=== PATIENT | female | born 1995 | race Caucasian/White ===

== ENCOUNTER 2018-07-01 19:36 | Emergency (ER) | payer MEDICAID, OTHER ==
[~2018-07-01] VITALS: Ht 162.6 cm; Wt 54.2 kg
[2018-07-01 21:17] LABS: CLARITY URINE CLEAR (CLEAR); COLOR URINE YELLOW (YELLOW); KETONES URINE TRACE (NEGATIVE); LEUKOCYTE ESTERASE URINE 3+ (NEGATIVE); NITRITE URINE NEGATIVE (NEGATIVE); OCCULT BLOOD URINE NEGATIVE (NEGATIVE); PH URINE 6.5 (4.5-8.0); PROTEIN URINE NEGATIVE (NEGATIVE); SPECIFIC GRAVITY URINE 1.018 (1.005-1.030); UROBILINOGEN URINE 0.2 E.U./dL (0.2-1.0)
[2018-07-02] MEDS ORDERED: NITROFURANTOIN 100MG M/M CAPSULE PO ONE (00:30)
[2018-07-02] MEDS ORDERED: LIDOCAINE HCL 1% 20ML VIAL (Pyxis) INJ INFIL ONE (01:15)
[2018-07-02 02:05] VITALS: BP 95/56
== END 2018-07-02 02:12 | disposition home or self-care (01) ==
LOC: ER 19:36
DX: N75.0 Cyst of Bartholin's gland (principal); E86.0 Dehydration; N17.0 Acute kidney failure with tubular necrosis; R82.4 Acetonuria; R82.71 Bacteriuria; N39.0 Urinary tract infection, site not specified; H57.89 Other specified disorders of eye and adnexa
CPT/HCPCS: 81003; 81025; 87077; 87086; 87186; 99284; J3490